=== PATIENT | female | born 1960 | race Caucasian/White ===

== ENCOUNTER 2019-03-18 11:42 | Observation (INO) ==
[2019-03-18 11:53] VITALS: BMI 45.6
--- NOTE | 2019-03-18 12:03 | DR.ALLERGY ---
HPI Time Seen Time Seen by Provider: 03/18/19 12:03 PCP Primary Care Physician: KRISHNA HPI Comment HPI Comment: Patient is a 58 year old female who presents for allergic reaction. She stated that she had IV contrast with CT on Monday, for which she was pre- medicated. She stated that since then she has had pain and redness of skin. She denies shortness of breath, chest pain, and or difficulty breathing. Patient states that she had this reaction similar a previous when she had a CT in the past. She states that she ended up staying in the hospital for a week at that time. Patient was seen at [place] yesterday given solumedrol and Zyrtec and s ent home. Patient denies shortness of breath currently. Complaint/Symptoms Chief Complaint:: PT CT DONE ON MONDAY MORNING, AT [facility]. PRE- MEDICATED WITH ALBUTEROL SULFATE 2 MG PO PREDNISONE 50 MG PO, RANTIDINE 150 MG PO THAT WAS ORDERED BY . FOR PREVENTION OF ALLERGIC REACTION OF CT. PT HAS BRIGHT REDNESS NOTED TO BODY. Self Treatment fo Chief Complaint: WENT TO [facility] 03/17/2019 WAS GVIEN PREDNISONE 20 MG AND ZY[address]. ALSO [address]. REMY GAVE HER DEPO-MEDROL 80 MG IM AND TOLD HER TO COME TO ER. Source History Provided: Patient and Family Member Mode of Arrival Mode of Arrival: Wheelchair Timing Onset of Chief Complaint: 03/15/19 PMH PMH Past Medical History: Yes Past Medical History: Hypertension and Hypothyroidism Past Surgical History: Yes Surgical History: Hysterectomy and Other Past Surgical History Comment: STAGE 3 COLON CANCER, HERNIA Family History History of Family Medical Conditions: Yes Family Medical History: Cancer, Heart Failure and Hypertension Family Medical History Comment: DAD LUNG CA Social History Does any household member use tobacco: No Alcohol Use: None Do you use any recreational Drugs:: No Lives With: Family Lives Where: Home infectious screening In the last 2 months have you had wt loss of >10#?: NO Have you had fever, night sweats or hemotysis?: No Have you traveled outside the country in the last 6 months?: No Isolation: Standard ROS Review of Systems Constitutional: Weakness and Other (diffuse pain on the body ) Eyes: No Symptoms Reported ENTM: No Symptoms Reported Respiratoy: No Symptoms Reported; negative Short of Breath Cardiovascular: No Symptoms Reported Gastrointestinal/Abdominal: No Symptoms Reported Neurological: No Symptoms Reported Musculoskeletal: No Symptoms Reported Integumentary: Rash Hematologic/Lymphatic: No Symptoms Reported Endocrine: No Symptoms Reported Psychiatric: No Symptoms Reported All Other Systems: Reviewed and Negative PE Vitals Vital Signs: Temp Pulse Pulse Resp BP BP Pulse Ox 03/18/19 14:01 86 106/52 94 L 03/18/19 14:00 86 93 L 03/18/19 13:45 89 94 L 03/18/19 13:30 84 107/74 94 L 03/18/19 13:15 95 H 95 03/18/19 13:02 92 H 114/60 93 L 03/18/19 13:00 92 H 89 L 03/18/19 12:50 98 H 94/52 91 L 03/18/19 12:48 90 20 94/52 90 L 03/18/19 12:45 95 H 91 L 03/18/19 12:30 99 H 92 L 03/18/19 12:23 104 H 20 117/92 94 L 03/18/19 11:43 100 F H 114 H 18 119/91 98 Constitutional Limitations: No Limitations General Appearance: Alert and Anxious Head Head Exam: Normal Inspection, Atraumatic and Normocephalic Eyes Eye exam: Normal Appearance, PERRL and EOMI ENT ENT Exam: Normal Exam and Normal Oropharynx Mouth Exam: Normal Inspection Throat Exam: Normal Inspection Neck Neck Exam: Normal Inspection Chest Chest Inspection: Normal Inspection Respiratory Respiratory Exam: Normal Lung Sounds Bilat Respiratory Exam: Bilateral: Clear to Auscultation Cardiovascular Cardiovascular Exam: Regular Rate and Normal Rhythm Abdominal Exam Abdominal Exam: Normal Inspection, Normal Bowel Sounds and Soft Extremities Extremities Exam: Normal Inspection and Full ROM Neurologic Neurological Exam: Alert, Oriented X3 and CN II-XII Intact Psychiatric Psychiatric Exam: Normal Affect and Normal Mood Skin Skin Exam: Rash (neck, chest, stomach, to knees reddness. ) Type of Lesion: Rash Description: Erythematous MDM Additional Information Additional Information Obtained From: Old Records and Family Differential Diagnosis Differential diagnosis: Anaphylaxis and Urticaria COURSE Treatment Treatment: Patient presents ED with redness generalized from neck all the way to knees. She stated she is has no wheezing or tightness in throat/mouth/tongue/neck. She has had oxygen need. Patient has been given solumedrol at other Ed last night and given outpatient Prednisone 20mg patient and was given 40mg for a total of 60 today. Patient has no respiratory distress although she did desaturate needed nasal cannula. Patient complains of no swelling in throat. Case was discussed with hospitals and he agreed patient needs to be admitted for inpatient workout. She was also started on IVF NS. The patient was in acute need of epinephrine, BP was lower on admission but pt states she took BP meds this AM and BP responded to fluid IVFs. PRN epi was placed on JUL during admission. Reevaluation 1st: Unchanged (12:30 stable ) 2nd: Improved (13;45 stable pt BP improved ) 3rd: Worsened (Needed supplemental 02, plan for admission discussed with pt and family. ) and Improved (4th 15:11 pt showed improvement 02 improved and BP improved. ) Consultation Called: 14:20 Call Returned: 14:20 Consultation Comments: Dr Mayer, discussed case and agreed pt need to be admitted for further workup. Education/Counseling Education/Counseling: Patient, Family, Education and Counseling Educated On: Treatment, Diagnosis, Prognosis, Needs for Follow Up and Other ROR Labs Reviewed Laboratory Results Reviewed?: Yes Result Diagrams: 03/18/19 12:19 03/18/19 12:19 Laboratory: WBC 19.4 X10^3/uL (3.6-10.0) H 03/18/19 12: RBC 5.07 X10^6/uL (3.5-5.4) 03/18/19 12:19 Hgb 14.9 g/dL (12.0-16.0) 03/18/19 12: Hct 45.4 % (36.0-47.0) 03/18/19 12: MCV 89.5 fL (80.0-100.0) 03/18/19 12:19 MCH 29.4 pg (27.0-34.0) 03/18/19 12: MCHC 32.9 g/dL (33.0-35.0) L 03/18/19 12: RDW 15.5 % (11.6-16.5) 03/18/19 12:19 Plt Count 252 X10^3/uL (150.0-450.0) 03/18/19 12: MPV 8.9 fL (7.4-11.0) 03/18/19 12:19 Neut % (Auto) 89.8 % (42.0-75.0) H 03/18/19 12:19 Lymph % (Auto) 2.7 % (21.0-51.0) L 03/18/19 12:19 [place] % (Auto) 3.0 % (0.0-13.0) 03/18/19 12:19 Eos % (Auto) 4.2 % (0.9-2.9) H 03/18/19 12:19 Baso % (Auto) 0.3 % (0.2-1.0) 03/18/19 12:19 Neut # (Auto) 17.4 x10^3/uL (2.2-4.8) H 03/18/19 12:19 Lymph # (Auto) 0.5 X10^3/uL (1.3-2.9) L 03/18/19 12:19 [place] # (Auto) 0.6 x10^3/uL (0.3-0.8) 03/18/19 12:19 Eos # (Auto) 0.8 x10^3/uL (0.0-0.2) H 03/18/19 12:19 Baso # (Auto) 0.1 X10^3/uL (0.0-0.1) 03/18/19 12:19 Absolute Nucleated RBC 0.1 /100WBC 03/18/19 12:19 Sodium 142 mmol/L (136-145) 03/18/19 12:19 Corrected Sodium TNP 03/18/19 12:19 Potassium 4.6 mmol/L (3.5-5.1) 03/18/19 12:19 Chloride 106 mmol/L (98-107) 03/18/19 12:19 Carbon Dioxide 27.2 mmol/L (21-32) 03/18/19 12:19 BUN 25 mg/dL (7-18) H 03/18/19 12:19 Creatinine 1.46 mg/dL (0.55-1.02) H 03/18/19 12:19 Est GFR (MDRD) Af Amer 47 (>60) L 03/18/19 12:19 Est GFR (MDRD) Non-Af 39 (>60) L 03/18/19 12:19 Glucose 109 mg/dL (65-99) H 03/18/19 12:19 Calcium 9.7 mg/dL (8.5-10.1) 03/18/19 12:19 Corrected Calcium 10.4 mg/dL (8.5-10.1) H 03/18/19 12:19 Total Bilirubin 1.60 mg/dL (0.2-1.0) H 03/18/19 12:19 AST 8 Units/L (15-37) L 03/18/19 12:19 ALT 15 Units/L (12-78) 03/18/19 12:19 Alkaline Phosphatase 101 Units/L (46-116) 03/18/19 12:19 Total Protein 6.4 g/dL (6.4-8.2) 03/18/19 12:19 Albumin 3.1 g/dL (3.4-5.0) L 03/18/19 12:19 Globulin 3.3 g/dL (2.5-4.5) 03/18/19 12:19 Albumin/Globulin Ratio 0.9 Ratio (1.1-2.1) L 03/18/19 12:19 XRAY XRAY Interpreted by: Radiologist Opioid Opioid Risk Tool Total: 0 Total Score Risk Category: Low Risk Copyright: [facility] predicting aberrant behaviors Diagnosis Discharge Problem: Allergic reaction Qualifiers: Encounter type: initial encounter Qualified Code(s): T78.40XA - Allergy, unspecified, initial encounter Narrative Support Text: Admitted to Dr. Mayer @ 14:20
[2019-03-18] MEDS ORDERED: PREDNISONE TAB 20 MG PO ONE (12:39)
[2019-03-18 12:55] LABS: BASOPHILS # (AUTO) 0.1 X10^3/uL (0.0-0.1); BASOPHILS % (AUTO) 0.3 % (0.2-1.0); EOSINOPHILS # (AUTO) 0.8 x10^3/uL (0.0-0.2); EOSINOPHILS % (AUTO) 4.2 % (0.9-2.9); HEMATOCRIT 45.4 % (36.0-47.0); HEMOGLOBIN 14.9 g/dL (12.0-16.0); LYMPHOCYTES # (AUTO) 0.5 X10^3/uL (1.3-2.9); LYMPHOCYTES % (AUTO) 2.7 % (21.0-51.0); MEAN CORPUSCULAR HEMOGLOBIN 29.4 pg (27.0-34.0); MEAN CORPUSCULAR HGB CONC 32.9 g/dL (33.0-35.0); MEAN CORPUSCULAR VOLUME 89.5 fL (80.0-100.0); MEAN PLATELET VOLUME 8.9 fL (7.4-11.0); MONOCYTES # (AUTO) 0.6 x10^3/uL (0.3-0.8); NEUTROPHILS # (AUTO) 17.4 x10^3/uL (2.2-4.8); NEUTROPHILS % (AUTO) 89.8 % (42.0-75.0); PLATELET COUNT 252 X10^3/uL (150.0-450.0); RED BLOOD COUNT 5.07 X10^6/uL (3.5-5.4); RED CELL DISTRIBUTION WIDTH 15.5 % (11.6-16.5); WHITE BLOOD COUNT 19.4 X10^3/uL (3.6-10.0)
[2019-03-18 13:03] LABS: ALANINE AMINOTRANSFERASE 15 Units/L (12-78); ALBUMIN 3.1 g/dL (3.4-5.0); ALKALINE PHOSPHATASE 101 Units/L (46-116); ASPARTATE AMINO TRANSFERASE 8 Units/L (15-37); BLOOD UREA NITROGEN 25 mg/dL (7-18); CALCIUM 9.7 mg/dL (8.5-10.1); CARBON DIOXIDE 27.2 mmol/L (21-32); CHLORIDE 106 mmol/L (98-107); COR CA(FOR HYPOALB) 10.4 mg/dL (8.5-10.1); CREATININE 1.46 mg/dL (0.55-1.02); SODIUM 142 mmol/L (136-145); TOTAL PROTEIN 6.4 g/dL (6.4-8.2); eGFR NON BLACK RACES 39 (>60)
--- NOTE | 2019-03-18 14:21 | DR.H&P ---
H&P History & Physical for Day of: H&P Date: 03/18/19 Chief Complaint Chief Complaint: Allergic reaction w/ rash Allergies Allergies Allergy/AdvReac Type Severity Reaction Status Date / Time IV DYE Allergy Uncoded 03/18/19 13:14 History of Present Illness History of Present Illness: Pt is a 62 year old f pmhx Colon Cancer(stage 3) s/p colostomy(~5 years ago) admitted from ED for allergic reaction. She states that she had CT w/ IV contrast on Monday in [place] for surveillance/monitoring by Oncology(Dr Payne) for which she was pre-medicated w/ albuterol, prednisone, and ranitidine. Since then she has reported erythematous rash throughout body that has progressively worsened daily. She does report similar event in past when she was first diagnosed w/ colon ca after having an IV contrast study, however during that event she was hospitalized for a week to recover. She denies needing to be intubated. She was seen at hospital in [place] yesterday, given chandler umedrol and zyrtec that has not helped sx and was seen by pcp today that told her to go to ED. Denies chest pain, shortness of breath, wheezing, or any dyspnea. Past Medical History Past Medical History: Dyslipidemia, Hypertension and Hypothyroidism Additional Medical History: Colon Cancer Past Surgical History Surgical History: Abdominal Surgery (Hernia Surgery, Colostomy), Hysterectomy and Other Family History Family Medical History: Cancer, Heart Failure and Hypertension Social History Does patient currently use any type of tobacco product: No Does any household member use tobacco: No Alcohol Use: None Drug Use: None Medications Home Medications: IV DYE Allergy (Uncoded 03/18/19 13:14) Labs Result Diagrams: 03/18/19 12:19 03/18/19 12:19 Labs: Laboratory WBC 19.4 X10^3/uL (3.6-10.0) H 03/18/19 12:19 RBC 5.07 X10^6/uL (3.5-5.4) 03/18/19 12:19 Hgb 14.9 g/dL (12.0-16.0) 03/18/19 12:19 Hct 45.4 % (36.0-47.0) 03/18/19 12:19 MCV 89.5 fL (80.0-100.0) 03/18/19 12:19 MCH 29.4 pg (27.0-34.0) 03/18/19 12:19 MCHC 32.9 g/dL (33.0-35.0) L 03/18/19 12:19 RDW 15.5 % (11.6-16.5) 03/18/19 12:19 Plt Count 252 X10^3/uL (150.0-450.0) 03/18/19 12:19 MPV 8.9 fL (7.4-11.0) 03/18/19 12:19 Neut % (Auto) 89.8 % (42.0-75.0) H 03/18/19 12: Lymph % (Auto) 2.7 % (21.0-51.0) L 03/18/19 12:19 [place] % (Auto) 3.0 % (0.0-13.0) 03/18/19 12: Eos % (Auto) 4.2 % (0.9-2.9) H 03/18/19 12:19 Baso % (Auto) 0.3 % (0.2-1.0) 03/18/19 12:19 Neut # (Auto) 17.4 x10^3/uL (2.2-4.8) H 03/18/19 12:19 Lymph # (Auto) 0.5 X10^3/uL (1.3-2.9) L 03/18/19 12:19 [place] # (Auto) 0.6 x10^3/uL (0.3-0.8) 03/18/19 12:19 Eos # (Auto) 0.8 x10^3/uL (0.0-0.2) H 03/18/19 12:19 Baso # (Auto) 0.1 X10^3/uL (0.0-0.1) 03/18/19 12:19 Absolute Nucleated RBC 0.1 /100WBC 03/18/19 12:19 Sodium 142 mmol/L (136-145) 03/18/19 12:19 Corrected Sodium TNP 03/18/19 12:19 Potassium 4.6 mmol/L (3.5-5.1) 03/18/19 12:19 Chloride 106 mmol/L (98-107) 03/18/19 12:19 Carbon Dioxide 27.2 mmol/L (21-32) 03/18/19 12:19 BUN 25 mg/dL (7-18) H 03/18/19 12:19 Creatinine 1.46 mg/dL (0.55-1.02) H 03/18/19 12:19 Est GFR (MDRD) Af Amer 47 (>60) L 03/18/19 12:19 Est GFR (MDRD) Non-Af 39 (>60) L 03/18/19 12:19 Glucose 109 mg/dL (65-99) H 03/18/19 12:19 Calcium 9.7 mg/dL (8.5-10.1) 03/18/19 12:19 Corrected Calcium 10.4 mg/dL (8.5-10.1) H 03/18/19 12:19 Total Bilirubin 1.60 mg/dL (0.2-1.0) H 03/18/19 12:19 AST 8 Units/L (15-37) L 03/18/19 12:19 ALT 15 Units/L (12-78) 03/18/19 12:19 Alkaline Phosphatase 101 Units/L (46-116) 03/18/19 12:19 Total Protein 6.4 g/dL (6.4-8.2) 03/18/19 12:19 Albumin 3.1 g/dL (3.4-5.0) L 03/18/19 12:19 Globulin 3.3 g/dL (2.5-4.5) 03/18/19 12:19 Albumin/Globulin Ratio 0.9 Ratio (1.1-2.1) L 03/18/19 12:19 Review of Systems Constitutional: Sweats; denies Fever and Chills Eyes: denies Vision Change and Redness ENT: denies Nose Congestion, Mouth Pain and Throat Swelling Respiratory: denies Cough, Shortness of Breath, Sputum and Wheezing Cardiovascular: denies Chest Pain and Edema Gastrointestinal: denies Nausea, Abdominal Pain, Diarrhea and Constipation Genitourinary: denies Frequency and Retention Musculoskeletal: No Symptoms Reported Skin: Rash (Diffuse generalized ) Neurological: No Symptoms Reported Physical Exam Vital Signs: Temperature 100 F Pulse Rate [Left Brachial] 90 Pulse Rate 86 Respiratory Rate 20 Blood Pressure [Left Arm] 94/52 Blood Pressure 106/52 O2 Sat by Pulse Oximetry 94 Oriented: Normal Eyes: Normal Ear: Normal Nose: Normal Throat: Normal Respiratory: Clear Throughout Cardiovascular: Normal : Normal Auscultation: Bowel Sounds: Normal Palpation: Other (Colostomy bag present ) Tenderness: Normal Skin: Maculopapular (Diffuse generalized w/ urticaria ) Musculoskeletal: Normal Psychiatric: Normal Mood Description: Calm Speech Pattern: Clear Assessment/Plan (1) Allergic to IV contrast: Status: Acute Plan: Prev hx of allergic reaction to IV contrast, recent CT done with IV on Monday. Monitor closely, continue prednisone 40 mg qday, atarax prn, Benadryl prn Oxygen prn, (2) Hypotension: Qualifiers: Hypotension type: hypotension due to drug Qualified Code(s): I95.2 - Hypotension due to drugs Status: Acute Plan: Due to IV contrast allergic reaction, continue IVF with NS at 125cc/hr Hold antihypertensive medication (3) Respiratory distress: Status: Acute Plan: Initial sat 89%, responded to O2nc, monitor closely, continue oxygen prn to keep sats > 92%. (4) Acute kidney injury: Status: Acute Plan: Cr: 1.46, likely due to contrast, continue hydration. Follow labs in the AM. (5) Allergic drug rash: Status: Acute Plan: Continue to monitor. Atarax and Benadryl prn (6) Hypothyroidism: Qualifiers: Hypothyroidism type: unspecified Qualified Code(s): E03.9 - Hypothyroidism, unspecified Status: Acute (7) Hyperlipidemia: Qualifiers: Hyperlipidemia type: unspecified Qualified Code(s): E78.5 - Hyperlipidemia, unspecified Status: Acute (8) MDD (major depressive disorder): Qualifiers: Major depression recurrence: unspecified whether recurrent Active/Remission status: remission status unspecified Qualified Code(s): F32.9 - Major depressive disorder, single episode, unspecified Status: Acute
[2019-03-18] MEDS ORDERED: NS 1000 ML 1,000 ML ONE ×2 (14:44→20:05)
[2019-03-18] MEDS: NS 100 ML IV 100 ML IV SCH ×2 (14:45→23:13)
[2019-03-18] MEDS ORDERED: ADRENALINE CHL INJ IM PRN (15:08)
[2019-03-18] MEDS ORDERED: BENADRYL CAP/TAB 25 MG PO PRN (15:59)
[2019-03-18] MEDS: ZOLOFT PO SCH (20:52)
[2019-03-18] MEDS: LIPITOR TAB 40 MG PO SCH (20:52)
[2019-03-18] MEDS: NS 1000 ML 1,000 ML IV SCH (22:45)
[2019-03-18] MEDS ORDERED: NS 100 ML IV 100 ML IV SCH (23:45)
[2019-03-19 05:30] LABS: BASOPHILS # (AUTO) 0.1 X10^3/uL (0.0-0.1); BASOPHILS % (AUTO) 0.4 % (0.2-1.0); EOSINOPHILS # (AUTO) 0.2 x10^3/uL (0.0-0.2); EOSINOPHILS % (AUTO) 1.3 % (0.9-2.9); HEMATOCRIT 38.4 % (36.0-47.0); LYMPHOCYTES # (AUTO) 0.8 X10^3/uL (1.3-2.9); LYMPHOCYTES % (AUTO) 6.4 % (21.0-51.0); MEAN CORPUSCULAR HEMOGLOBIN 29.6 pg (27.0-34.0); MEAN CORPUSCULAR HGB CONC 32.6 g/dL (33.0-35.0); MEAN CORPUSCULAR VOLUME 90.8 fL (80.0-100.0); MEAN PLATELET VOLUME 9.2 fL (7.4-11.0); MONOCYTES # (AUTO) 0.4 x10^3/uL (0.3-0.8); MONOCYTES % (AUTO) 3.2 % (0.0-13.0); NEUTROPHILS # (AUTO) 10.5 x10^3/uL (2.2-4.8); NEUTROPHILS % (AUTO) 88.7 % (42.0-75.0); PLATELET COUNT 167 X10^3/uL (150.0-450.0); RED BLOOD COUNT 4.23 X10^6/uL (3.5-5.4); RED CELL DISTRIBUTION WIDTH 15.6 % (11.6-16.5); WHITE BLOOD COUNT 11.8 X10^3/uL (3.6-10.0)
[2019-03-19 05:31] LABS: HEMOGLOBIN 12.5 g/dL (12.0-16.0)
[2019-03-19 05:45] LABS: ALBUMIN 2.4 g/dL (3.4-5.0); CALCIUM 9.1 mg/dL (8.5-10.1); CARBON DIOXIDE 24.7 mmol/L (21-32); COR CA(FOR HYPOALB) 10.4 mg/dL (8.5-10.1); CREATININE 1.2 mg/dL (0.55-1.02); TOTAL PROTEIN 5.4 g/dL (6.4-8.2)
[2019-03-19] MEDS: NS 1000 ML 1,000 ML IV SCH ×4 (06:08→23:52)
[2019-03-19 08:11] LABS: BILIRUBIN,URINE NEGATIVE (NEGATIVE); BLOOD/HEMOGLOBIN,URINE NEGATIVE (NEGATIVE); GLUCOSE, URINE NEGATIVE (NEGATIVE); KETONES,URINE NEGATIVE (NEGATIVE); LEUKOCYTE ESTERASE ,URINE 2+ (NEGATIVE); NITRITES,URINE POSITIVE (NEGATIVE); PROTEIN,URINE NEGATIVE (NEGATIVE); UROBILINOGEN,URINE NORMAL (NORMAL)
[2019-03-19 08:12] LABS: APPEARANCE,URINE HAZY (CLEAR); COLOR,URINE YELLOW (YELLOW)
[2019-03-19 08:16] LABS: BACTERIA,URINE 3+ /HPF (NEGATIVE); RBC,URINE NONE SEEN /HPF (0-3); SQUAMOUS EPITHELIAL CELL,UR NEGATIVE /HPF (NEGATIVE)
[2019-03-19] MEDS: ASPIRIN EC 81 MG PO SCH (08:55)
[2019-03-19] MEDS: PREDNISONE TAB 20 MG PO SCH (08:55)
[2019-03-19] MEDS: ATARAX TAB 10 MG PO PRN ×2 (08:55)
[2019-03-19] MEDS: SYNTHROID 125 mcg TAB PO SCH (08:55)
--- NOTE | 2019-03-19 11:22 | PCM.PROG ---
Progress Note Progress Note for Day of Date of Exam: 03/19/19 Subjective Subjective: Pt is a 62 yo f pmhx Colon Cancer(stage 3) s/p colostomy(~5 years ago) admitted from ED for allergic reaction. She states that she had CT w/ IV contrast on Monday in [place] for surveillance/monitoring by Oncology(Dr Payne) for which she was pre-medicated w/ albuterol, prednisone, and ranitidine. Since then she has reported erythematous rash throughout body that has progressively worsened daily. She does report similar event in past when she was first diagnosed w/ colon ca after having an IV contrast study, however during that event she was hospitalized for a week to recover. Denies needing to be intubated. She was seen at hospital in [place] on Monday, given solumedrol and zyrtec that has not helped sx and was seen by pcp on Monday and that told her to go to ED. Today she is feeling a little better. She feels like her rash is slowly resolivng but appeared a little more on her legs. Still pruritic. Tolerating po intake. Past Medical Family Social History Past Med/Fam/Surg Hx: No changes since H&P Allergies: Allergies IV DYE Allergy (Uncoded 03/18/19 13:14) Review of Systems ROS: No change since H&P Vital Signs and I&O's Vital Signs: Temperature 98.3 F Pulse Rate [Left Brachial] 56 Pulse Rate 80 Respiratory Rate 20 Blood Pressure [Right Arm] 73/55 Blood Pressure [Left Arm] 116/65 Blood Pressure 101/56 O2 Sat by Pulse Oximetry 95 Intake and Output: Intake & Output 03/16/19 03/17/19 03/18/19 03/19/19 23:59 23:59 23:59 23:59 Intake Total 1220 / 1220 1095 / 1095 Balance 1220 / 1220 1095 / 1095 Physical Exam Oriented: Normal Eyes: Normal Ear: Normal Nose: Normal Throat: Normal Cardiovascular: Normal : Normal Auscultation: Bowel Sounds: Normal Tenderness: Normal Skin: Maculopapular (Diffuse generalized w/ urticaria ) Musculoskeletal: Normal Psychiatric: Normal Mood Description: Calm Speech Pattern: Clear and Appropriate Laboratory and Diagnostics Result Diagrams: 03/19/19 04:45 03/19/19 04:45 Labs: Laboratory WBC 11.8 X10^3/uL (3.6-10.0) H 03/19/19 04:45 RBC 4.23 X10^6/uL (3.5-5.4) 03/19/19 04:45 Hgb 12.5 g/dL (12.0-16.0) D 03/19/19 04:45 Hct 38.4 % (36.0-47.0) 03/19/19 04:45 MCV 90.8 fL (80.0-100.0) 03/19/19 04:45 MCH 29.6 pg (27.0-34.0) 03/19/19 04:45 MCHC 32.6 g/dL (33.0-35.0) L 03/19/19 04:45 RDW 15.6 % (11.6-16.5) 03/19/19 04:45 Plt Count 167 X10^3/uL (150.0-450.0) 03/19/19 04:45 MPV 9.2 fL (7.4-11.0) 03/19/19 04:45 Neut % (Auto) 88.7 % (42.0-75.0) H 03/19/19 04:45 Lymph % (Auto) 6.4 % (21.0-51.0) L 03/19/19 04:45 [place] % (Auto) 3.2 % (0.0-13.0) 03/19/19 04:45 Eos % (Auto) 1.3 % (0.9-2.9) 03/19/19 04:45 Baso % (Auto) 0.4 % (0.2-1.0) 03/19/19 04:45 Neut # (Auto) 10.5 x10^3/uL (2.2-4.8) H 03/19/19 04:45 Lymph # (Auto) 0.8 X10^3/uL (1.3-2.9) L 03/19/19 04:45 [place] # (Auto) 0.4 x10^3/uL (0.3-0.8) 03/19/19 04:45 Eos # (Auto) 0.2 x10^3/uL (0.0-0.2) 03/19/19 04:45 Baso # (Auto) 0.1 X10^3/uL (0.0-0.1) 03/19/19 04:45 Absolute Nucleated RBC 0.0 /100WBC 03/19/19 04:45 Sodium 144 mmol/L (136-145) 03/19/19 04:45 Corrected Sodium 145 mmol/L (136-145) 03/19/19 04:45 Potassium 4.5 mmol/L (3.5-5.1) 03/19/19 04:45 Chloride 111 mmol/L (98-107) H 03/19/19 04:45 Carbon Dioxide 24.7 mmol/L (21-32) 03/19/19 04:45 BUN 33 mg/dL (7-18) H 03/19/19 04:45 Creatinine 1.20 mg/dL (0.55-1.02) H 03/19/19 04:45 Est GFR (MDRD) Af Amer 59 (>60) 03/19/19 04:45 Est GFR (MDRD) Non-Af 49 (>60) L 03/19/19 04:45 Glucose 122 mg/dL (65-99) H 03/19/19 04:45 Calcium 9.1 mg/dL (8.5-10.1) 03/19/19 04:45 Corrected Calcium 10.4 mg/dL (8.5-10.1) H 03/19/19 04:45 Total Bilirubin 0.60 mg/dL (0.2-1.0) 03/19/19 04:45 AST 6 Units/L (15-37) L 03/19/19 04:45 ALT 14 Units/L (12-78) 03/19/19 04:45 Alkaline Phosphatase 79 Units/L (46-116) 03/19/19 04:45 Total Protein 5.4 g/dL (6.4-8.2) L 03/19/19 04:45 Albumin 2.4 g/dL (3.4-5.0) L 03/19/19 04:45 Globulin 3.0 g/dL (2.5-4.5) 03/19/19 04:45 Albumin/Globulin Ratio 0.8 Ratio (1.1-2.1) L 03/19/19 04:45 Specimen Type Clean catch urine 03/19/19 08:00 Urine Color Yellow (YELLOW) 03/19/19 08:00 Urine Appearance Hazy (CLEAR) 03/19/19 08:00 Urine pH 6.0 (5.0 - 8.0) 03/19/19 08:00 Ur Specific [place] 1.015 (1.000-1.030) 03/19/19 08:00 Urine Protein Negative (NEGATIVE) 03/19/19 08:00 Urine Glucose (UA) Negative (NEGATIVE) 03/19/19 08:00 Urine Ketones Negative (NEGATIVE) 03/19/19 08:00 Urine Occult Blood Negative (NEGATIVE) 03/19/19 08:00 Urine Nitrite Positive (NEGATIVE) 03/19/19 08:00 Urine Bilirubin Negative (NEGATIVE) 03/19/19 08:00 Urine Urobilinogen Normal (NORMAL) 03/19/19 08:00 Ur Leukocyte Esterase 2+ (NEGATIVE) 03/19/19 08:00 Urine RBC None seen /HPF (0-3) 03/19/19 08:00 Urine WBC 5-10 /HPF (0-5) A 03/19/19 08:00 Ur Squamous Epith Cells Negative /HPF (NEGATIVE) 03/19/19 08:00 Urine Bacteria 3+ /HPF (NEGATIVE) 03/19/19 08:00 Ur Culture Indicated? Yes/culture set up 03/19/19 08:00 Plan (1) Allergic to IV contrast: Status: Acute Plan: Prev hx of allergic reaction to IV contrast, recent CT done with IV on Monday. Monitor closely, continue Prednisone 40 mg(03/18), atarax prn, Benadryl prn Oxygen prn (2) Hypotension: Status: Acute Qualifiers: Hypotension type: hypotension due to drug Qualified Code(s): I95.2 - Hypotension due to drugs Plan: Due to IV contrast allergic reaction, continue IVF with NS at 125cc/hr Hold antihypertensive medication, BP wnl overnight and today. (3) Respiratory distress: Status: Acute Plan: -Initial sat 89%, responded to O2nc, monitor closely, continue oxygen prn to keep sats > 92%. -On RA (4) Acute kidney injury: Status: Acute Plan: Likely d/t contrast, continue hydration. Renal function improving. Follow labs in the AM. Cr: 1.46>1.20 (5) Allergic drug rash: Status: Acute Plan: Continue to monitor. Rash improving. Atarax and Benadryl prn (6) Hypothyroidism: Status: Acute Qualifiers: Hypothyroidism type: unspecified Qualified Code(s): E03.9 - Hypothyroidism, unspecified (7) Hyperlipidemia: Status: Acute Qualifiers: Hyperlipidemia type: unspecified Qualified Code(s): E78.5 - Hyperlipidemia, unspecified (8) MDD (major depressive disorder): Status: Acute Qualifiers: Active/Remission status: remission status unspecified Major depression recurrence: unspecified whether recurrent Qualified Code(s): F32.9 - Major depressive disorder, single episode, unspecified
[2019-03-19] MEDS: LOVENOX INJ 40 MG SYR SC SCH (11:36)
[2019-03-19] MEDS: LIPITOR TAB 40 MG PO SCH (21:29)
[2019-03-19] MEDS: ZOLOFT PO SCH (21:29)
[2019-03-20] MEDS: NS 1000 ML 1,000 ML IV SCH ×2 (00:10→07:30)
[2019-03-20] MEDS: ATARAX TAB 10 MG PO PRN (04:24)
[2019-03-20 05:27] LABS: BASOPHILS % (AUTO) 0.4 % (0.2-1.0); EOSINOPHILS # (AUTO) 0.5 x10^3/uL (0.0-0.2); EOSINOPHILS % (AUTO) 4.4 % (0.9-2.9); HEMATOCRIT 37.3 % (36.0-47.0); HEMOGLOBIN 12.4 g/dL (12.0-16.0); LYMPHOCYTES # (AUTO) 1.3 X10^3/uL (1.3-2.9); MEAN CORPUSCULAR HEMOGLOBIN 30.5 pg (27.0-34.0); MEAN CORPUSCULAR HGB CONC 33.4 g/dL (33.0-35.0); MEAN CORPUSCULAR VOLUME 91.6 fL (80.0-100.0); MEAN PLATELET VOLUME 9.4 fL (7.4-11.0); MONOCYTES # (AUTO) 0.6 x10^3/uL (0.3-0.8); MONOCYTES % (AUTO) 5.5 % (0.0-13.0); NEUTROPHILS # (AUTO) 8.4 x10^3/uL (2.2-4.8); NEUTROPHILS % (AUTO) 77.7 % (42.0-75.0); PLATELET COUNT 189 X10^3/uL (150.0-450.0); RED BLOOD COUNT 4.07 X10^6/uL (3.5-5.4); RED CELL DISTRIBUTION WIDTH 15.7 % (11.6-16.5); WHITE BLOOD COUNT 10.8 X10^3/uL (3.6-10.0)
[2019-03-20 05:34] LABS: BLOOD UREA NITROGEN 26 mg/dL (7-18); CALCIUM 9.1 mg/dL (8.5-10.1); CARBON DIOXIDE 24.7 mmol/L (21-32); CHLORIDE 114 mmol/L (98-107); CREATININE 0.94 mg/dL (0.55-1.02); SODIUM 146 mmol/L (136-145); eGFR NON BLACK RACES > 60 (>60)
[2019-03-20 07:54] VITALS: BP 160/88
[2019-03-20] MEDS: LOVENOX INJ 40 MG SYR SC SCH (09:16)
[2019-03-20] MEDS: ASPIRIN EC 81 MG PO SCH (09:17)
[2019-03-20] MEDS: SYNTHROID 125 mcg TAB PO SCH (09:17)
[2019-03-20] MEDS: PREDNISONE TAB 20 MG PO SCH (09:18)
--- NOTE | 2019-03-20 11:31 | W.DIS.FURT ---
Summary of Discharge Admission Diagnosis Patient Problems (Updated 03/18/19 @ 16:52 by Christiano Mayer) MDD (major depressive disorder) (Acute) F32.9 Hyperlipidemia (Acute) E78.5 Hypothyroidism (Acute) E03.9 Allergic to IV contrast (Acute) Z91.041 Allergic drug rash (Acute) L27.0 Acute kidney injury (Acute) N17.9 Respiratory distress (Acute) R06.03 Hypotension (Acute) I95.9 Allergic reaction (Acute) T78.40XA Vital Signs: Vital Signs (72 hours) 03/18/19 11:43 03/18/19 12:23 03/18/19 12:30 Temperature 100 F H Pulse Rate 114 H 99 H Pulse Rate [Left Brachial] 104 H Respiratory Rate 18 20 Blood Pressure 119/91 Blood Pressure [Left Arm] 117/92 Blood Pressure [Right Arm] O2 Sat by Pulse Oximetry 98 94 L 92 L 03/18/19 12:45 03/18/19 12:48 03/18/19 12:50 Temperature Pulse Rate 95 H 98 H Pulse Rate [Left Brachial] 90 Respiratory Rate 20 Blood Pressure 94/52 Blood Pressure [Left Arm] 94/52 Blood Pressure [Right Arm] O2 Sat by Pulse Oximetry 91 L 90 L 91 L 03/18/19 13:00 03/18/19 13:02 03/18/19 13:15 Temperature Pulse Rate 92 H 92 H 95 H Pulse Rate [Left Brachial] Respiratory Rate Blood Pressure 114/60 Blood Pressure [Left Arm] Blood Pressure [Right Arm] O2 Sat by Pulse Oximetry 89 L 93 L 95 03/18/19 13:30 03/18/19 13:45 03/18/19 14:00 Temperature Pulse Rate 84 89 86 Pulse Rate [Left Brachial] Respiratory Rate Blood Pressure 107/74 Blood Pressure [Left Arm] Blood Pressure [Right Arm] O2 Sat by Pulse Oximetry 94 L 94 L 93 L 03/18/19 14:01 03/18/19 14:15 03/18/19 14:30 Temperature Pulse Rate 86 87 80 Pulse Rate [Left Brachial] Respiratory Rate Blood Pressure 106/52 101/56 Blood Pressure [Left Arm] Blood Pressure [Right Arm] O2 Sat by Pulse Oximetry 94 L 93 L 91 L 03/18/19 14:45 03/18/19 15:00 03/18/19 15:20 Temperature 99.3 F Pulse Rate 95 H 80 Pulse Rate [Left Brachial] 88 Respiratory Rate 20 Blood Pressure Blood Pressure [Left Arm] 74/49 Blood Pressure [Right Arm] 73/55 O2 Sat by Pulse Oximetry 94 L 93 L 97 03/18/19 16:00 03/18/19 17:00 03/18/19 20:00 Temperature 99.3 F 98.7 F Pulse Rate Pulse Rate [Left Brachial] 88 67 Respiratory Rate 20 20 Blood Pressure Blood Pressure [Left Arm] 70/52 93/56 121/58 Blood Pressure [Right Arm] O2 Sat by Pulse Oximetry 97 96 03/19/19 00:00 03/19/19 04:00 03/19/19 08:00 Temperature 98.7 F 98.3 F 99.1 F Pulse Rate Pulse Rate [Left Brachial] 55 L 56 L 85 Respiratory Rate 20 20 20 Blood Pressure Blood Pressure [Left Arm] 102/50 116/65 151/61 Blood Pressure [Right Arm] O2 Sat by Pulse Oximetry 97 95 98 03/19/19 12:00 03/19/19 16:00 03/19/19 20:00 Temperature 98.7 F 97.9 F 98.0 F Pulse Rate Pulse Rate [Left Brachial] 66 66 77 Respiratory Rate 20 22 20 Blood Pressure Blood Pressure [Left Arm] 118/56 129/68 122/60 Blood Pressure [Right Arm] O2 Sat by Pulse Oximetry 93 L 93 L 96 03/20/19 00:00 03/20/19 04:00 03/20/19 07:53 Temperature 98.3 F 98.3 F 97.7 F Pulse Rate Pulse Rate [Left Brachial] 72 71 76 Respiratory Rate 22 20 18 Blood Pressure Blood Pressure [Left Arm] 133/60 131/70 160/88 Blood Pressure [Right Arm] O2 Sat by Pulse Oximetry 96 98 96 Labs: Laboratory Last Values WBC 10.8 X10^3/uL (3.6-10.0) H 03/20/19 04:44 RBC 4.07 X10^6/uL (3.5-5.4) 03/20/19 04:44 Hgb 12.4 g/dL (12.0-16.0) 03/20/19 04:44 Hct 37.3 % (36.0-47.0) 03/20/19 04:44 MCV 91.6 fL (80.0-100.0) 03/20/19 04:44 MCH 30.5 pg (27.0-34.0) 03/20/19 04:44 MCHC 33.4 g/dL (33.0-35.0) 03/20/19 04:44 RDW 15.7 % (11.6-16.5) 03/20/19 04:44 Plt Count 189 X10^3/uL (150.0-450.0) 03/20/19 04:44 MPV 9.4 fL (7.4-11.0) 03/20/19 04:44 Neut % (Auto) 77.7 % (42.0-75.0) H 03/20/19 04:44 Lymph % (Auto) 12.0 % (21.0-51.0) L 03/20/19 04:44 [place] % (Auto) 5.5 % (0.0-13.0) 03/20/19 04:44 Eos % (Auto) 4.4 % (0.9-2.9) H 03/20/19 04:44 Baso % (Auto) 0.4 % (0.2-1.0) 03/20/19 04:44 Neut # (Auto) 8.4 x10^3/uL (2.2-4.8) H 03/20/19 04:44 Lymph # (Auto) 1.3 X10^3/uL (1.3-2.9) 03/20/19 04:44 [place] # (Auto) 0.6 x10^3/uL (0.3-0.8) 03/20/19 04:44 Eos # (Auto) 0.5 x10^3/uL (0.0-0.2) H 03/20/19 04:44 Baso # (Auto) 0.0 X10^3/uL (0.0-0.1) 03/20/19 04:44 Absolute Nucleated RBC 0.1 /100WBC 03/20/19 04:44 Sodium 146 mmol/L (136-145) H 03/20/19 04:44 Corrected Sodium TNP 03/20/19 04:44 Potassium 4.6 mmol/L (3.5-5.1) 03/20/19 04:44 Chloride 114 mmol/L (98-107) H 03/20/19 04:44 Carbon Dioxide 24.7 mmol/L (21-32) 03/20/19 04:44 BUN 26 mg/dL (7-18) H 03/20/19 04:44 Creatinine 0.94 mg/dL (0.55-1.02) 03/20/19 04:44 Est GFR (MDRD) Af Amer > 60 (>60) 03/20/19 04:44 Est GFR (MDRD) Non-Af > 60 (>60) 03/20/19 04:44 Glucose 86 mg/dL (65-99) 03/20/19 04:44 Calcium 9.1 mg/dL (8.5-10.1) 03/20/19 04:44 Corrected Calcium 10.4 mg/dL (8.5-10.1) H 03/19/19 04:45 Total Bilirubin 0.60 mg/dL (0.2-1.0) 03/19/19 04:45 AST 6 Units/L (15-37) L 03/19/19 04:45 ALT 14 Units/L (12-78) 03/19/19 04:45 Alkaline Phosphatase 79 Units/L (46-116) 03/19/19 04:45 Total Protein 5.4 g/dL (6.4-8.2) L 03/19/19 04:45 Albumin 2.4 g/dL (3.4-5.0) L 03/19/19 04:45 Globulin 3.0 g/dL (2.5-4.5) 03/19/19 04:45 Albumin/Globulin Ratio 0.8 Ratio (1.1-2.1) L 03/19/19 04:45 Specimen Type Clean catch urine 03/19/19 08:00 Urine Color Yellow (YELLOW) 03/19/19 08:00 Urine Appearance Hazy (CLEAR) 03/19/19 08:00 Urine pH 6.0 (5.0 - 8.0) 03/19/19 08:00 Ur Specific [place] 1.015 (1.000-1.030) 03/19/19 08:00 Urine Protein Negative (NEGATIVE) 03/19/19 08:00 Urine Glucose (UA) Negative (NEGATIVE) 03/19/19 08:00 Urine Ketones Negative (NEGATIVE) 03/19/19 08:00 Urine Occult Blood Negative (NEGATIVE) 03/19/19 08:00 Urine Nitrite Positive (NEGATIVE) 03/19/19 08:00 Urine Bilirubin Negative (NEGATIVE) 03/19/19 08:00 Urine Urobilinogen Normal (NORMAL) 03/19/19 08:00 Ur Leukocyte Esterase 2+ (NEGATIVE) 03/19/19 08:00 Urine RBC None seen /HPF (0-3) 03/19/19 08:00 Urine WBC 5-10 /HPF (0-5) A 03/19/19 08:00 Ur Squamous Epith Cells Negative /HPF (NEGATIVE) 03/19/19 08:00 Urine Bacteria 3+ /HPF (NEGATIVE) 03/19/19 08:00 Ur Culture Indicated? Yes/culture set up 03/19/19 08:00 Reason For Visit: ALLERGIC REACTION Discharge Diagnosis All Active Problems (Updated 03/18/19 @ 16:52 by Christiano Mayer) MDD (major depressive disorder) (Acute) Hyperlipidemia (Acute) Hypothyroidism (Acute) Allergic to IV contrast (Acute) Allergic drug rash (Acute) Acute kidney injury (Acute) Respiratory distress (Acute) Hypotension (Acute) Allergic reaction (Acute) Discharge Medications Discharge Medications: IV DYE Allergy (Uncoded 03/18/19 13:14) CONTINUE taking the following medications aspirin [Aspir-81] 81 mg PO DAILY 03/18/19 [History] atorvastatin 40 mg PO HS 03/18/19 [History] levothyroxine 125 mcg PO DAILY 03/18/19 [History] lisinopril 10 mg PO DAILY 03/18/19 [History] sertraline 50 mg PO HS 03/18/19 [History] New Prescriptions cephalexin 500 mg PO BID 7 Days #14 cap 03/20/19 [Rx] hydroxyzine HCl 25 mg PO Q12H PRN 15 Days #30 tab 03/20/19 [Rx] prednisone 40 mg PO DAILY 3 Days #6 tab 03/20/19 [Rx]
--- NOTE | 2019-03-20 13:16 | W.DIS.FURT ---
Summary of Discharge Discharge Summary of Date Date of Exam: 03/20/19 Admission Date Date of Admission: 03/18/19 Admission Diagnosis Patient Problems (Updated 03/20/19 @ 13:16 by Christiano Mayer) Urinary tract infection (Acute) N39.0 MDD (major depressive disorder) (Chronic) F32.9 Hyperlipidemia (Chronic) E78.5 Hypothyroidism (Chronic) E03.9 Allergic to IV contrast (Acute) Z91.041 Allergic drug rash (Acute) L27.0 Acute kidney injury (Acute) N17.9 Respiratory distress (Acute) R06.03 Hypotension (Acute) I95.9 Allergic reaction (Acute) T78.40XA Hospital Course: Pt is a 62 yo f pmhx Colon Cancer(stage 3) s/p colostomy(~5 years ago) admitted for allergic reaction to IV contrast resulting in diffuse maculopapular rash/hives. She states that she had CT w/ IV contrast on Monday in [place] for surveillance/monitoring by Oncology(Dr Payne) for which she was pre-medicated w/ albuterol, prednisone, and ranitidine. She had similar event in past when she was first diagnosed w/ colon ca after having an IV contrast study, and was hospitalized for a week (did not have respiratory distress requiring intubation). When rash first occurred, she was seen at hospital in [place] on Monday, given solumedrol and zyrtec that did not help sx and was seen again on Monday by her pcp that told her to go to ED. Her initial O2sat was 89%, which she responded rapidly to O2nc, and was able to be weaned completely off after a few hours. She was also initially hypotensive but responded quickly to IVF hydration that also improved LINDA likely d/t contrast. She was started on prednisone inpatient and discharged w/ rx to complete 5 day course. On discharge pt had improvement in rash, vitals stable, and was advised to use calamine lotion and atarax prn to help w/ pruritis. Her UrineCx prelim returned with gram - rods. Pt was discharged w/ Keflex x5d. She is to follow up with her pcp in 1 week. (1) Allergic to IV contrast (2) Hypotension (3) Respiratory distress (4) Acute kidney injury: Cr: 1.46>1.20>0.94 (5) Allergic drug rash: Atarax prn (6) Hypothyroidism (7) Hyperlipidemia (8) MDD (major depressive disorder) (9) UTI Vital Signs: Vital Signs (72 hours) 03/18/19 11:43 03/18/19 12:23 03/18/19 12:30 Temperature 100 F H Pulse Rate 114 H 99 H Pulse Rate [Left Brachial] 104 H Respiratory Rate 18 20 Blood Pressure 119/91 Blood Pressure [Left Arm] 117/92 Blood Pressure [Right Arm] O2 Sat by Pulse Oximetry 98 94 L 92 L 03/18/19 12:45 03/18/19 12:48 03/18/19 12:50 Temperature Pulse Rate 95 H 98 H Pulse Rate [Left Brachial] 90 Respiratory Rate 20 Blood Pressure 94/52 Blood Pressure [Left Arm] 94/52 Blood Pressure [Right Arm] O2 Sat by Pulse Oximetry 91 L 90 L 91 L 03/18/19 13:00 03/18/19 13:02 03/18/19 13:15 Temperature Pulse Rate 92 H 92 H 95 H Pulse Rate [Left Brachial] Respiratory Rate Blood Pressure 114/60 Blood Pressure [Left Arm] Blood Pressure [Right Arm] O2 Sat by Pulse Oximetry 89 L 93 L 95 03/18/19 13:30 03/18/19 13:45 03/18/19 14:00 Temperature Pulse Rate 84 89 86 Pulse Rate [Left Brachial] Respiratory Rate Blood Pressure 107/74 Blood Pressure [Left Arm] Blood Pressure [Right Arm] O2 Sat by Pulse Oximetry 94 L 94 L 93 L 03/18/19 14:01 03/18/19 14:15 03/18/19 14:30 Temperature Pulse Rate 86 87 80 Pulse Rate [Left Brachial] Respiratory Rate Blood Pressure 106/52 101/56 Blood Pressure [Left Arm] Blood Pressure [Right Arm] O2 Sat by Pulse Oximetry 94 L 93 L 91 L 03/18/19 14:45 03/18/19 15:00 03/18/19 15:20 Temperature 99.3 F Pulse Rate 95 H 80 Pulse Rate [Left Brachial] 88 Respiratory Rate 20 Blood Pressure Blood Pressure [Left Arm] 74/49 Blood Pressure [Right Arm] 73/55 O2 Sat by Pulse Oximetry 94 L 93 L 97 03/18/19 16:00 03/18/19 17:00 03/18/19 20:00 Temperature 99.3 F 98.7 F Pulse Rate Pulse Rate [Left Brachial] 88 67 Respiratory Rate 20 20 Blood Pressure Blood Pressure [Left Arm] 70/52 93/56 121/58 Blood Pressure [Right Arm] O2 Sat by Pulse Oximetry 97 96 03/19/19 00:00 03/19/19 04:00 03/19/19 08:00 Temperature 98.7 F 98.3 F 99.1 F Pulse Rate Pulse Rate [Left Brachial] 55 L 56 L 85 Respiratory Rate 20 20 20 Blood Pressure Blood Pressure [Left Arm] 102/50 116/65 151/61 Blood Pressure [Right Arm] O2 Sat by Pulse Oximetry 97 95 98 03/19/19 12:00 03/19/19 16:00 03/19/19 20:00 Temperature 98.7 F 97.9 F 98.0 F Pulse Rate Pulse Rate [Left Brachial] 66 66 77 Respiratory Rate 20 22 20 Blood Pressure Blood Pressure [Left Arm] 118/56 129/68 122/60 Blood Pressure [Right Arm] O2 Sat by Pulse Oximetry 93 L 93 L 96 03/20/19 00:00 03/20/19 04:00 03/20/19 07:53 Temperature 98.3 F 98.3 F 97.7 F Pulse Rate Pulse Rate [Left Brachial] 72 71 76 Respiratory Rate 22 20 18 Blood Pressure Blood Pressure [Left Arm] 133/60 131/70 160/88 Blood Pressure [Right Arm] O2 Sat by Pulse Oximetry 96 98 96 03/20/19 12:00 Temperature 98.1 F Pulse Rate Pulse Rate [Left Brachial] 62 Respiratory Rate 20 Blood Pressure Blood Pressure [Left Arm] 160/88 Blood Pressure [Right Arm] O2 Sat by Pulse Oximetry 94 L Labs: Laboratory Last Values WBC 10.8 X10^3/uL (3.6-10.0) H 03/20/19 04:44 RBC 4.07 X10^6/uL (3.5-5.4) 03/20/19 04:44 Hgb 12.4 g/dL (12.0-16.0) 03/20/19 04:44 Hct 37.3 % (36.0-47.0) 03/20/19 04:44 MCV 91.6 fL (80.0-100.0) 03/20/19 04:44 MCH 30.5 pg (27.0-34.0) 03/20/19 04:44 MCHC 33.4 g/dL (33.0-35.0) 03/20/19 04:44 RDW 15.7 % (11.6-16.5) 03/20/19 04:44 Plt Count 189 X10^3/uL (150.0-450.0) 03/20/19 04:44 MPV 9.4 fL (7.4-11.0) 03/20/19 04:44 Neut % (Auto) 77.7 % (42.0-75.0) H 03/20/19 04:44 Lymph % (Auto) 12.0 % (21.0-51.0) L 03/20/19 04:44 [place] % (Auto) 5.5 % (0.0-13.0) 03/20/19 04:44 Eos % (Auto) 4.4 % (0.9-2.9) H 03/20/19 04:44 Baso % (Auto) 0.4 % (0.2-1.0) 03/20/19 04:44 Neut # (Auto) 8.4 x10^3/uL (2.2-4.8) H 03/20/19 04:44 Lymph # (Auto) 1.3 X10^3/uL (1.3-2.9) 03/20/19 04:44 [place] # (Auto) 0.6 x10^3/uL (0.3-0.8) 03/20/19 04:44 Eos # (Auto) 0.5 x10^3/uL (0.0-0.2) H 03/20/19 04:44 Baso # (Auto) 0.0 X10^3/uL (0.0-0.1) 03/20/19 04:44 Absolute Nucleated RBC 0.1 /100WBC 03/20/19 04:44 Sodium 146 mmol/L (136-145) H 03/20/19 04:44 Corrected Sodium TNP 03/20/19 04:44 Potassium 4.6 mmol/L (3.5-5.1) 03/20/19 04:44 Chloride 114 mmol/L (98-107) H 03/20/19 04:44 Carbon Dioxide 24.7 mmol/L (21-32) 03/20/19 04:44 BUN 26 mg/dL (7-18) H 03/20/19 04:44 Creatinine 0.94 mg/dL (0.55-1.02) 03/20/19 04:44 Est GFR (MDRD) Af Amer > 60 (>60) 03/20/19 04:44 Est GFR (MDRD) Non-Af > 60 (>60) 03/20/19 04:44 Glucose 86 mg/dL (65-99) 03/20/19 04:44 Calcium 9.1 mg/dL (8.5-10.1) 03/20/19 04:44 Corrected Calcium 10.4 mg/dL (8.5-10.1) H 03/19/19 04:45 Total Bilirubin 0.60 mg/dL (0.2-1.0) 03/19/19 04:45 AST 6 Units/L (15-37) L 03/19/19 04:45 ALT 14 Units/L (12-78) 03/19/19 04:45 Alkaline Phosphatase 79 Units/L (46-116) 03/19/19 04:45 Total Protein 5.4 g/dL (6.4-8.2) L 03/19/19 04:45 Albumin 2.4 g/dL (3.4-5.0) L 03/19/19 04:45 Globulin 3.0 g/dL (2.5-4.5) 03/19/19 04:45 Albumin/Globulin Ratio 0.8 Ratio (1.1-2.1) L 03/19/19 04:45 Specimen Type Clean catch urine 03/19/19 08:00 Urine Color Yellow (YELLOW) 03/19/19 08:00 Urine Appearance Hazy (CLEAR) 03/19/19 08:00 Urine pH 6.0 (5.0 - 8.0) 03/19/19 08:00 Ur Specific [place] 1.015 (1.000-1.030) 03/19/19 08:00 Urine Protein Negative (NEGATIVE) 03/19/19 08:00 Urine Glucose (UA) Negative (NEGATIVE) 03/19/19 08:00 Urine Ketones Negative (NEGATIVE) 03/19/19 08:00 Urine Occult Blood Negative (NEGATIVE) 03/19/19 08:00 Urine Nitrite Positive (NEGATIVE) 03/19/19 08:00 Urine Bilirubin Negative (NEGATIVE) 03/19/19 08:00 Urine Urobilinogen Normal (NORMAL) 03/19/19 08:00 Ur Leukocyte Esterase 2+ (NEGATIVE) 03/19/19 08:00 Urine RBC None seen /HPF (0-3) 03/19/19 08:00 Urine WBC 5-10 /HPF (0-5) A 03/19/19 08:00 Ur Squamous Epith Cells Negative /HPF (NEGATIVE) 03/19/19 08:00 Urine Bacteria 3+ /HPF (NEGATIVE) 03/19/19 08:00 Ur Culture Indicated? Yes/culture set up 03/19/19 08:00 Reason For Visit: ALLERGIC REACTION Discharge Date Discharge Date: 03/20/19 Discharge Diagnosis All Active Problems (Updated 03/20/19 @ 13:16 by Christiano Mayer) Urinary tract infection (Acute) MDD (major depressive disorder) (Chronic) Hyperlipidemia (Chronic) Hypothyroidism (Chronic) Allergic to IV contrast (Acute) Allergic drug rash (Acute) Acute kidney injury (Acute) Respiratory distress (Acute) Hypotension (Acute) Allergic reaction (Acute) Plan of Treatment: Continue with present treatment and follow up plan. Pt is to keep follow up appointment as instructed and take medications as ordered. Discharge Medications Discharge Medications: IV DYE Allergy (Uncoded 03/18/19 13:14) CONTINUE taking the following medications aspirin [Aspir-81] 81 mg PO DAILY 03/18/19 [History] atorvastatin 40 mg PO HS 03/18/19 [History] levothyroxine 125 mcg PO DAILY 03/18/19 [History] lisinopril 10 mg PO DAILY 03/18/19 [History] sertraline 50 mg PO HS 03/18/19 [History] New Prescriptions cephalexin 500 mg PO BID 7 Days #14 cap 03/20/19 [Rx] hydroxyzine HCl 25 mg PO Q12H PRN 15 Days #30 tab 03/20/19 [Rx] prednisone 40 mg PO DAILY 3 Days #6 tab 03/20/19 [Rx] Follow up and Referral Follow Up: 1 Week (pcp) Discharge Disposition Discharge Disposition: Home
== END 2019-03-20 12:15 | disposition home or self-care (01) ==
LOC: EDBD 11:42 → MED/SURG 11:42 → ER 11:42 → MED/SURG 15:19
PROVIDERS: ADMIT Family Medicine; ATTEND Family Medicine
DX: Z85.038 Personal history of other malignant neoplasm of large intestine; E03.8 Other specified hypothyroidism; Z93.3 Colostomy status; Z79.899 Other long term (current) drug therapy; T50.8X5A Adverse effect of diagnostic agents, initial encounter; R26.81 Unsteadiness on feet; N39.0 Urinary tract infection, site not specified; B96.29 Other Escherichia coli [E. coli] as the cause of diseases classified elsewhere; L27.0 Generalized skin eruption due to drugs and medicaments taken internally; F32.9 Major depressive disorder, single episode, unspecified; R94.4 Abnormal results of kidney function studies; Z91.041 Radiographic dye allergy status; R06.03 Acute respiratory distress; E78.2 Mixed hyperlipidemia; I95.2 Hypotension due to drugs; N17.8 Other acute kidney failure
CPT/HCPCS: 36415; 80048; 80053; 81001; 85025; 87086; 87088; 87186; 94760; 96365; 97161; 99284; A4216; A4222; G0378; J1650; J7030; J7050; J7512